=== PATIENT | female | born 1945 | race Caucasian/White ===

== ENCOUNTER → 2020-11-08 | Outpatient (CLI) | payer MEDICARE ==
--- NOTE | 2020-11-08 15:55 | KCIC ---
EXAM: Pelvis and right hip, 2 views; lumbar spine, 2 views. HISTORY: Pain. COMPARISON: None. FINDINGS: Pelvis and right hip: A frontal view of the pelvis and frog-leg view the right hip are obtained. Ther e is no fracture, dislocation or subluxation. The femoral the heads are normal in configuration and l ocation. The sacroiliac joints are intact. Lumbar spine: 2 views of the lumbar spine are obtained. 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 The re is mild levoscoliosis centered at L3. There is mild retrolisthesis of L1 on L2, L2 and 1 anterolis thesis of L4 and L5, measuring 2 mm. There is multilevel endplate remodeling. There is disc space julia rowing predominantly at T12-L1. There are surgical clips overlying the bilateral iliac regions. IMPRESSION: 1. Multilevel degenerative change involving the lumbar spine, described above. 2. Multilevel lumbar listhesis and mild lumbar scoliosis. 3. No acute osseous finding. Electronically signed by: Evelyn Godinez MD (11/08/2020 3:52 PM) [id number]
== END ==
LOC: KCIC 15:00
PROVIDERS: ATTEND Nurse Practitioner Gerontology
DX: M47.816 Spondylosis without myelopathy or radiculopathy, lumbar region (principal); M43.16 Spondylolisthesis, lumbar region; M41.86 Other forms of scoliosis, lumbar region
CPT/HCPCS: 72100; 73502